=== PATIENT | female | born 1990 | race Caucasian/White ===

== ENCOUNTER 2021-10-13 19:05 | Inpatient (IN) ==
[2021-10-13] MEDS ORDERED: Famotidine 20 MG/2 ML VIAL IVP PRN (19:13)
[2021-10-13] MEDS ORDERED: Ondansetron 4 MG/2 ML VIAL IVP PRN (19:13)
[2021-10-13] MEDS ORDERED: Naloxone 0.4 MG/ML INJ IVP PRN (19:13)
[2021-10-13] MEDS ORDERED: Metoclopramide 10 MG/2 ML VIAL IVP PRN (19:13)
[2021-10-13] MEDS ORDERED: Ringers Solution, Lactated 1,000 ML IVC SCH (19:15)
[2021-10-13] MEDS ORDERED: Penicillin G Potassium 5,000,000 UNIT in 0.9 % Sodium Chloride Mini Bag 100 ML IVPB ONE (19:18)
[2021-10-13 19:31] LABS: Basophils # 0.1 K/mcL (0.0-0.2); Basophils % 0.4 %; Eosinophils % 0.2 %; Hematocrit 36.3 % (35.3-44.9); Hemoglobin 10.9 g/dL (11.5-15.4); Immature Granulocytes % 0.6 % (0-4); Lymphocytes # 2.2 K/mcL (0.6-4.6); Lymphocytes % 15.3 %; Mean Corpuscular Hemoglobin 22.9 pg (28.0-33.3); Mean Corpuscular Volume 76.1 fL (83.0-100.0); Mean Platelet Volume 10.1 fL (9.4-12.4); Monocytes # 0.8 K/mcL (0.0-1.3); Monocytes % 5.9 %; Neutrophils # 11.1 K/mcL (1.6-8.9); Platelet Count 294 K/mcL (140-400); Red Blood Count 4.77 M/mcL (3.82-4.97); Red Cell Distribution Width 15.9 % (11.5-14.5); Segmented Neutrophils % 77.6 %; White Blood Count 14.3 K/mcL (4.3-11.1)
[2021-10-13] MEDS ORDERED: Oxytocin 30 UNIT/503 ML BAG IVC ONE (19:39)
[2021-10-13] MEDS ORDERED: Ibuprofen 600 MG TABLET PO ONE (19:56)
[2021-10-13 20:09] LABS: Amphetamine Screen,Urine Negative ng/mL (Cutoff=1000); Barbiturate Screen,Urine Negative ng/mL (Cutoff=200); Benzodiazepines Screen,Urine Negative ng/mL (Cutoff=300); Cannabinoid Screen,Urine Negative ng/mL (Cutoff = 50); Cocaine Screen,Urine Negative ng/mL (Cutoff= 300); Opiate Screen,Urine Negative ng/mL (Cutoff=300); Phencyclidine Screen,Urine Negative ng/mL (Cutoff=25)
[2021-10-13 20:11] LABS: Influenza A PCR Negative (Negative); Influenza B PCR Negative (Negative); Resp. Syncytial Virus PCR Negative (Negative)
[2021-10-13 20:14] LABS: SARS-CoV-2 by PCR (In House) Negative (Negative)
[2021-10-13] MEDS ORDERED: Benzocaine/Menthol 56 GM AEROSOL SPRAY TP PRN (22:58)
[2021-10-13] MEDS ORDERED: Rho Immune Globulin 1,500 UNIT SYRINGE IM PRN (22:58)
[2021-10-13] MEDS ORDERED: Oxytocin 30 UNIT/503 ML BAG IVC SCH (22:58)
[2021-10-13] MEDS ORDERED: Measles/Mumps/Rubella Vacc 0.5 ML VIAL SQ PRN (22:58)
[2021-10-13] MEDS ORDERED: Ondansetron ODT 4 MG TAB.RAPDIS SL PRN (22:58)
[2021-10-13] MEDS ORDERED: Penicillin G Potassium 2,500,000 UNIT/105 ML MLS IVPB SCH (23:00)
[2021-10-13] MEDS: Acetaminophen 325 MG TABLET PO SCH (23:59)
[2021-10-13] MEDS: Ibuprofen 600 MG TABLET PO SCH (23:59)
[2021-10-14] MEDS: Prenatal Vit/FA 1 EACH TABLET PO SCH (09:50)
[2021-10-14] MEDS: Acetaminophen 325 MG TABLET PO SCH (15:50)
[2021-10-14] MEDS: Ibuprofen 600 MG TABLET PO SCH (15:51)
[2021-10-14 21:15] VITALS: BP 138/93; PULSE 110; TEMP 98.8; O2SAT 100
[2021-10-15] MEDS: Ibuprofen 600 MG TABLET PO SCH (04:55)
[2021-10-15] MEDS: Acetaminophen 325 MG TABLET PO SCH (04:56)
[2021-10-15] MEDS: Prenatal Vit/FA 1 EACH TABLET PO SCH (07:56)
== END 2021-10-15 10:15 | disposition home or self-care (01) | DRG 560 ==
LOC: 1NENULAB 19:05 → 1NENUOBS 22:56
PROVIDERS: ADMIT Advanced Practice Midwife; ATTEND Advanced Practice Midwife